=== PATIENT | male | born 1960 | race Asian ===

== ENCOUNTER 2021-06-29 04:45 | Emergency (ER) | payer OTHER ==
--- NOTE | 2021-06-29 04:46 | ED Physician Documentation ---
History of Present Illness - Stated complaint Stated Complaint: LT TOES SWOLLEN - History obtained from History obtained from: Patient - History of Present Illness Timing: How many days ago (5) Pain level max: 8 Pain level now: 4 Improved by: rest Worsened by: movement, palpation, weight-bearing - Additonal information Additional information: c/o 4-5 days of left foot pain at based of 2nd and 3rd toes. He tripped (without falling) in his garage approximately one week ago but does not recall having immediate pain and thus he is unsure if this pain is related to the incident. He recalls having similar symptoms many years ago unsure which foot, and per patients description, it sounds like gout was suspected. Patient took ibuprofen prior to arrival and feels improvement after the ibuprofen as well as after having elevated the foot overnight Review of Systems Constitutional: denies: Fever Skin: denies: Rash Musculoskeletal: reports: Extremity pain, Extremity swelling, Pain with weight bearing PD PAST MEDICAL HISTORY - Past Medical History Past Medical History: No - Present Medications Home Medications: Ambulatory Orders Medication Instructions Recorded Confirmed Atorvastatin [Lipitor] 20 mg PO DAILY 06/29/21 06/29/21 lisinopriL [Lisinopril] 20 mg PO DAILY 06/29/21 06/29/21 predniSONE [Deltasone] 40 mg PO DAILY 4 Days #8 tablet 06/29/21 - Allergies Allergies/Adverse Reactions: Allergies Allergy/AdvReac Type Severity Reaction Status Date / Time No Known Drug Allergies Allergy Verified 06/29/21 04:50 PD ED PE NORMAL - Vitals Vital signs reviewed: Yes - General General: Alert and oriented X 3, No acute distress, Well developed/nourished PD ED PE EXPANDED - Extremities Feet visual: 1 - swelling (subtle swelling and erythema with mild/moderate TTP without crepitus nor fluctuance), tenderness Results - Vitals Vitals: Oxygen O2 Source Room air - Rads (name of study) left foot xrays Radiology: Prelim report reviewed, See rad report PD MEDICAL DECISION MAKING - ED course Complexity details: reviewed results, re-evaluated patient, considered differential, d/w patient ED course: c/o atraumatic left foot pain and swelling, although he recalls a possibly injury last week and thus xrays are performed of the left foot. There are no acute findings on xrays and infection (such as cellulitis) is unlikely given poor margination of erythema, not hot to touch. Will initiate short course of prednisone for likely gout. Departure - Departure Disposition: 01 Home, Self Care Clinical Impression: Gout Qualifiers: Gout site: foot Gout etiology: unspecified cause Chronicity: acute Laterality: left Qualified Code(s): M10.9 - Gout, unspecified Condition: Good Instructions: ED Arthritis Gout, ED Diet Gout Prescriptions: predniSONE [Deltasone] 40 mg PO DAILY 4 Days #8 tablet Forms: Activity restrictions Discharge Date/Time: 06/29/21 05:56
[2021-06-29] MEDS ORDERED: predniSONE 20 MG TABLET PO STA (05:05)
[2021-06-29 05:58] VITALS: BP 156/81
--- NOTE | 2021-06-29 08:03 | XRAY Report ---
PROCEDURE: Foot 3 View LT INDICATIONS: left foot pain, tenderness TECHNIQUE: 3 views of the foot were acquired. COMPARISON: None FINDINGS: Bones: No fractures or dislocations. No suspicious bony lesions. Soft tissues: No tibiotalar joint effusion. Achilles tendon appears normal. IMPRESSION: No evidence acute bony abnormality of the left foot. A preliminary report with the above findings was provided at the time of the study by [facility]. Reviewed by: Kilo Dan MD on 06/29/2021 8:02 AM PDT Approved by: Kilo Dan MD on 06/29/2021 8:02 AM PDT Station ID: [id number]
== END 2021-06-29 05:56 | disposition home or self-care (01) ==
LOC: ED 04:45
DX: M10.9 Gout, unspecified (principal)
CPT/HCPCS: 73630; 99283; J7512

== ENCOUNTER 2022-03-15 04:04 | Emergency (ER) | payer OTHER ==
[2022-03-15 04:34] VITALS: BP 149/89
--- NOTE | 2022-03-15 04:55 | ED Physician Documentation ---
History of Present Illness - Stated complaint Stated Complaint: HIGH BP - Chief complaint Chief Complaint: Cardiac - History obtained from History obtained from: Patient - Additonal information Additional information: Patient is a 62-year-old male with a history of hypertension and gout presenting for evaluation of elevated blood pressure readings. Patient has a disability appointment on Tuesday with the [facility] office. He was instructed to keep a log of his blood pressure readings. He started checking his blood pressure yesterday. Yesterday evening his blood pressure was in the 120s range. Patient was up early this morning as he drives to [place] for work. He checked his blood pressure at home and it was in the 160s. He tried checking it 2 more times and the numbers kept going up. He then took his lisinopril 20 mg. He denied having any symptoms such as headache, blurred vision, weakness, chest pain or difficulty breathing. He normally takes his lisinopril later in the day Like late morning, midday. He does miss his lisinopril sometimes and reports taking it approximately 5 out of 7 days a week.He says that when he goes to the doctor's office and otherwise checks his blood pressure it is in the 120s. Review of Systems Constitutional: denies: Fever Eyes: denies: Photophobia Nose: denies: Congestion Cardiac: denies: Chest pain / pressure Respiratory: denies: Dyspnea, Cough GI: denies: Abdominal Pain, Vomiting Musculoskeletal: denies: Extremity swelling Neurologic: denies: Headache PD PAST MEDICAL HISTORY - Past Medical History Cardiovascular: Hypertension, High cholesterol Musculoskeletal: Gout - Past Surgical History Past Surgical History: No - Present Medications Home Medications: Ambulatory Orders Medication Instructions Recorded Confirmed Atorvastatin [Lipitor] 20 mg PO DAILY 06/29/21 03/15/22 lisinopriL [Lisinopril] 20 mg PO DAILY 06/29/21 03/15/22 predniSONE [Deltasone] 40 mg PO DAILY 4 Days #8 tablet 06/29/21 03/15/22 Colchicine 1 tab PO DAILY 03/15/22 03/15/22 - Allergies Allergies/Adverse Reactions: Allergies Allergy/AdvReac Type Severity Reaction Status Date / Time No Known Drug Allergies Allergy Verified 03/15/22 04:15 - Social History Does the pt smoke?: No Smoking Status: Never smoker Does the pt drink ETOH?: Yes Does the pt have substance abuse?: No - Immunizations Immunizations are current?: Yes PD ED PE NORMAL - General General: Alert and oriented X 3, No acute distress, Well developed/nourished - HEENT HEENT: Atraumatic, Moist mucous membranes, Pharynx benign - Neck Neck: Supple, no meningeal sign - Cardiac Cardiac: RRR, No murmur, Strong equal pulses - Respiratory Respiratory: No respiratory distress, Clear bilaterally - Abdomen Abdomen: Normal bowel sounds, Soft, Non tender - Derm Derm: Warm and dry - Extremities Extremities: No edema - Neuro Neuro: Alert and oriented X 3, grit blaster 2-12 intact, No motor deficit, No sensory deficit, Normal speech Eye Opening: Spontaneous Motor: Obeys Commands Verbal: Oriented GCS Score: 15 - Psych Psych: Normal mood Results - Vitals Vitals: Vital Signs - 24 hr 03/15/22 03/15/22 03/15/22 04:11 04:30 04:34 Temperature 36.9 C Heart Rate 98 78 76 Respiratory 16 20 Rate Blood Pressure 190/108 H 154/94 H 149/89 H O2 Saturation 100 100 100 Oxygen O2 Source Room air PD MEDICAL DECISION MAKING - ED course Complexity details: re-evaluated patient ED course: Patient presenting for evaluation of elevated blood pressure readings. Patient's initial blood pressure was elevated but patient did not have any symptoms to suggest urgency or emergency.After short time, blood pressures were rechecked and significantly improved. Patient was counseled on the need to be compliant with his blood pressure medication and Taking the medication at the same time every day. Patient was also advised on strict return precautions.Patient has remained asymptomatic. In accordance with the [facility] clinical policy from December 2012, this patient has asymptomatic elevated blood pressure without evidence of acute target organ injury. There are also no signs of acute stroke, cardiac ischemia, pulmonary edema, encephalopathy or acute congestive heart failure. Therefore the patient will be referred to their primary care provider for follow-up of their asymptomatic hypertension. Departure - Departure Disposition: 01 Home, Self Care Clinical Impression: Asymptomatic hypertension Condition: Stable Instructions: ED HTN Established Comments: Dandre - You were evaluated for high blood pressures. Your initial blood pressure reading was very elevated in the emergency department but you did not have any symptoms with it. Fortunately without any treatment your blood pressures did lower back down to a more Regular range. Please make sure to take your blood pressure medication every day and try to take it at the same time every day. If you are needing to keep a log of your blood pressures, please take These measurements every day and after you have taken your medication. But anytime you develop any symptoms such as headache, dizziness, weakness, chest pain, difficulty breathing or you have any concerns please return to the emergency department. Please follow-up with your primary care doctor With a log of your blood pressure readings in the next 1 to 2 weeks. Forms: Activity restrictions
== END 2022-03-15 05:08 | disposition home or self-care (01) ==
LOC: ED 04:04
DX: I10 Essential (primary) hypertension (principal)
CPT/HCPCS: 99282; 99283

== ENCOUNTER 2023-01-06 14:27 | Emergency (ER) | payer OTHER ==
--- NOTE | 2023-01-06 14:56 | ED Physician Documentation ---
History of Present Illness - Stated complaint Stated Complaint: C+BODY ACHES/HEAD PX - Chief complaint Chief Complaint: Heent - Additonal information Additional information: This is a very well-appearing 63-year-old male that presents the emergency department for sinus congestion, cough, body aches and fevers that began 1 week ago. He tested positive for COVID-19 5 days ago. He states that he is vaccinated though not boosted. He is lost his appetite as no food tastes good and is tasteless. He has taken Tylenol and Aleve without relief of symptoms. He denies chest pain or shortness of air. No nausea or vomiting. No diarrhea. Past medical history Mo significant for hypertension and hyperlipidemia. No previous history of coronary artery disease or strokes. Sparing mild tachycardia on exam he appears rather well. Review of Systems Constitutional: reports: Fever, Chills, Myalgias, Fatigue Eyes: reports: Reviewed and negative Ears: reports: Reviewed and negative Nose: reports: Congestion Throat: reports: Sore throat, Reviewed and negative Cardiac: reports: Reviewed and negative Respiratory: reports: Cough. denies: Dyspnea, Hemoptysis, Wheezing GI: reports: Reviewed and negative : reports: Reviewed and negative Skin: reports: Reviewed and negative Musculoskeletal: reports: Reviewed and negative PD PAST MEDICAL HISTORY - Past Medical History Cardiovascular: Hypertension, High cholesterol Musculoskeletal: Gout - Past Surgical History Past Surgical History: No - Present Medications Home Medications: Ambulatory Orders Medication Instructions Recorded Confirmed lisinopriL [Lisinopril] 20 mg PO DAILY 06/29/21 03/15/22 Colchicine 1 tab PO DAILY PRN 03/15/22 03/15/22 Rosuvastatin Calcium [Crestor] 20 mg PO DAILY 01/06/23 01/06/23 - Allergies Allergies/Adverse Reactions: Allergies Allergy/AdvReac Type Severity Reaction Status Date / Time No Known Drug Allergies Allergy Verified 01/06/23 14:34 - Social History Does the pt smoke?: No Smoking Status: Never smoker Does the pt drink ETOH?: Yes Does the pt have substance abuse?: No - Immunizations Immunizations are current?: Yes PD ED PE NORMAL - General General: Alert and oriented X 3, No acute distress - HEENT HEENT: Atraumatic, Moist mucous membranes, Pharynx benign - Neck Neck: Supple, no meningeal sign, No adenopathy - Cardiac Cardiac: RRR, No murmur, Strong equal pulses - Respiratory Respiratory: No respiratory distress, Clear bilaterally - Abdomen Abdomen: Normal bowel sounds - Back Back: No CVA TTP, No spinal TTP - Derm Derm: Normal color, Warm and dry, No rash - Extremities Extremities: No deformity, No tenderness to palpate, Normal ROM s pain - Neuro Neuro: Alert and oriented X 3 Eye Opening: Spontaneous Motor: Obeys Commands Verbal: Oriented GCS Score: 15 Results - Vitals Vitals: Vital Signs - 24 hr 01/06/23 01/06/23 14:30 14:54 Temperature 37.7 C Heart Rate 118 H 102 H Respiratory 16 Rate Blood Pressure 130/84 H O2 Saturation 96 96 Oxygen O2 Source Room air - Rads (name of study) cxr Relevant Findings:: EMP independent interpretation of test (No acute cardiopulmonary process) PD Medical Decision Making - ED course Complexity details: reviewed results, re-evaluated patient, considered differential, d/w patient ED course: This is a very well-appearing 63-year-old male who has past medical history Mo significant for hypertension hyperlipidemia who presents to the emergency department for evaluation of 6 days loss of taste, cough, congestion body aches and low-grade temperature elevations. He did test positive for COVID 5 days ago. On exam he has some very mild tachycardia but he is normotensive. Afebrile here. Cardiopulmonary auscultation was unremarkable without findings of hypo sera. My interpretation of the chest x-ray and that of the radiologist as well as that there is no acute cardiopulmonary findings to suggest pneumonia, pneumothorax, pleural effusion, pulmonary edema or cardiomegaly. Patient's biggest complaint is he has lost his appetite due to the loss of taste. He is also endorsing body aches. Given the duration of symptoms he is outside the window of treatment for consideration of oral antiviral therapy with Molnupiravir or Paxlovid. He is also outside the window of therapy for Tamiflu in the setting of influenza thus we deferred testing for that today as well. I discussed with patient that most flulike symptoms will begin to dissipate within 5 to 7 days. He is advised to take 600 mg of Motrin with food 2-3 times daily get plenty of fluids and lots of rest. Should he develop chest pain, severe shortness of air, any fainting episodes then he will return immediately to the ER for a second evaluation. Departure - Departure Disposition: Home, Self Care Clinical Impression: COVID-19, Generalized body aches Condition: Stable Record reviewed to determine appropriate education?: Yes Instructions: ED Viral Syndrome Comments: About a week ago you began having headaches, fever, body aches congestion and cough. You tested positive for COVID-19 5 days ago. You have lost your appetite is nothing tastes good. The exam of your heart and lungs today was essentially normal. You do have a little bit of an elevated heart rate which is most likely due to the pain. The chest x-ray completed shows no findings of pneumonia, pneumothorax, pleural e ffusion, cardiomegaly or congestive heart failure. Unfortunately with the duration of your symptoms you are outside the window for consideration of treatment with oral antiviral medication such as Paxlovid or Molnupiravir. I expect that with a little bit of time and rest your symptoms will be getting better. I do recommend that you take 600 mg of ibuprofen [id number] with food 2-3 times a day. You can continue to alternate with Tylenol 500 mg for body aches and fever. You can continue to take your usual blood pressure and high cholesterol medicines. For the nasal congestion sinus rinse with saline can be helpful or Flonase nasal spray taken after a shower. In general I expect your symptoms to be getting better over the next few days. If you develop worsening fevers, have any fainting episodes, have severe chest pain or shortness of air you should return to the ER for second evaluation
--- NOTE | 2023-01-06 15:33 | XRAY Report ---
PROCEDURE: Chest 1 View X-Ray INDICATIONS: chest pain TECHNIQUE: One view of the chest was acquired. COMPARISON: None. FINDINGS: Surgical changes and devices: None. Lungs and pleura: No pleural effusions or pneumothorax. Lungs are clear. Mediastinum: Mediastinal contours appear normal. Heart size is normal. Bones and chest wall: No suspicious bony lesions. Overlying soft tissues appear unremarkable. IMPRESSION: No acute pulmonary process. Reviewed by: Rosario Carney MD on 01/06/2023 3:32 PM [facility] Approved by: Rosario Carney MD on 01/06/2023 3:32 PM [facility] Station ID: [id number]
[2023-01-06] MEDS ORDERED: IBUPROFEN 600 MG TABLET PO STA (15:45)
[2023-01-06 15:54] VITALS: BP 133/97
== END 2023-01-06 16:02 | disposition home or self-care (01) ==
LOC: ED 14:27
DX: U07.1 COVID-19 (principal); I10 Essential (primary) hypertension; E78.00 Pure hypercholesterolemia, unspecified; E78.5 Hyperlipidemia, unspecified; Z79.899 Other long term (current) drug therapy
CPT/HCPCS: 71045; 99283; A9270

== ENCOUNTER 2023-01-10 07:51 | Emergency (ER) | payer OTHER ==
[2023-01-10] MEDS ORDERED: ALBUTEROL 1 PUFF INH STA (08:11)
[2023-01-10] MEDS ORDERED: CHERRY SYRUP 10 ML UDC PO ONE (08:12)
[2023-01-10] MEDS ORDERED: DEXAMETHASONE 10 MG/ML VIAL PO STA (08:12)
[2023-01-10] MEDS ORDERED: BENZONATATE 100 MG CAPSULE PO STA (08:12)
--- NOTE | 2023-01-10 08:15 | ED Physician Documentation ---
PD HPI DYSPNEA - Stated complaint Stated Complaint: COUGH - Chief complaint Chief Complaint: Resp - History obtained from History obtained from: Patient - History of Present Illness Timing - onset: How many days ago (10 days of illness with initially congestion, fever, malaise and some cough. Fevers and aches have improved but cough worse the past 3 days. Unable to sleep due to cough. Chest hurts with coughing. Minimally productive cough. No hemoptysis. No exertional CP/dyspnea preceding the current illness.) Timing - onset during: Rest, Light activity Timing - details: Gradual onset, Still present Inciting event(s): URI Improved by: Rest, Sitting up Worsened by: Exertion, Laying flat, Coughing Associated symptoms: Cough Recently seen: Emergency Dept (4 days ago for general illness and fevers/aches, mild cough. No Rx given. Had CXR that was clear.) Review of Systems Constitutional: reports: Fever (last week) Nose: reports: Congestion Throat: denies: Sore throat Cardiac: reports: Chest pain / pressure (with coughing and deep breathing). denies: Pedal edema, Calf pain Respiratory: reports: Dyspnea, Cough, Wheezing GI: reports: Diarrhea (loose). denies: Vomiting PD PAST MEDICAL HISTORY - Past Medical History Cardiovascular: Hypertension, High cholesterol Respiratory: None Musculoskeletal: Gout - Past Surgical History Past Surgical History: No - Present Medications Home Medications: Ambulatory Orders Medication Instructions Recorded Confirmed lisinopriL [Lisinopril] 20 mg PO DAILY 06/29/21 03/15/22 Colchicine 1 tab PO DAILY PRN 03/15/22 03/15/22 Rosuvastatin Calcium [Crestor] 20 mg PO DAILY 01/06/23 01/06/23 Albuterol Sulf [Ventolin Hfa 1 - 2 puffs INH Q4HR PRN #1 each 01/10/23 Inhaler] Amox/Clav 875/125 [Augmentin] 1 each PO Q12H #14 tablet 01/10/23 Benzonatate [Tessalon] 100 mg PO TID PRN #20 cap 01/10/23 guaiFENesin/CODEINE [Robitussin AC] 5 ml PO Q6H PRN #120 ml 01/10/23 - Allergies Allergies/Adverse Reactions: Allergies Allergy/AdvReac Type Severity Reaction Status Date / Time No Known Drug Allergies Allergy Verified 01/10/23 08:04 - Social History Does the pt smoke?: No Smoking Status: Never smoker Does the pt drink ETOH?: Yes Does the pt have substance abuse?: No - Immunizations Immunizations are current?: Yes PD ED PE NORMAL - Vitals Vital signs reviewed: Yes (sats 93-95%) - General General: Alert and oriented X 3, No acute distress, Well developed/nourished - Neck Neck: Supple, no meningeal sign, No adenopathy - Cardiac Cardiac: RRR, No murmur - Respiratory Respiratory: No respiratory distress. No: Clear bilaterally (no coarse sounds. Has some exp whezing and tightness centrally. ) - Derm Derm: Normal color, Warm and dry - Extremities Extremities: No edema, No calf tenderness / cord - Neuro Neuro: Alert and oriented X 3, No motor deficit, Normal speech Results - Vitals Vitals: Vital Signs - 24 hr 01/10/23 01/10/23 01/10/23 07:58 08:07 08:31 Temperature 37.6 C Heart Rate 89 88 88 Respiratory 18 24 26 H Rate Blood Pressure 142/79 H O2 Saturation 95 94 01/10/23 09:00 Temperature Heart Rate 102 H Respiratory 16 Rate Blood Pressure 137/85 H O2 Saturation 96 Oxygen O2 Source Room air - Rads (name of study) chest xray Relevant Findings:: Prelim report reviewed, EMP independent interpretation of test (scattered infiltrates, changed from 01/06/23), See rad report PD Medical Decision Making - ED course Complexity details: reviewed old records (last visit to ER 4 days ago. ), d/w patient Reviewed Lab Results: chest xray with some patchy infiltrates now compared to recent one. Will treat for developing pneumonia. Sats are good and he has unlabored breathing. Departure - Departure Disposition: 01 Home, Self Care Clinical Impression: Cough, Pneumonia, COVID-19 Condition: Stable Record reviewed to determine appropriate education?: Yes Instructions: ED Pneumonia Adult Follow-Up: YAMILET WEIR MD [Primary Care Provider] - Prescriptions: Albuterol Sulf [Ventolin Hfa Inhaler] 1 - 2 puffs INH Q4HR PRN #1 each PRN Reason: Shortness Of Air/Wheezing Amox/Clav 875/125 [Augmentin] 1 each PO Q12H #14 tablet guaiFENesin/CODEINE [Robitussin AC] 5 ml PO Q6H PRN #120 ml PRN Reason: Cough Benzonatate [Tessalon] 100 mg PO TID PRN #20 cap PRN Reason: Cough Comments: Your chest x-ray does show scattered fluid collections/infiltrates consistent with developing pneumonia. This may still be viral but there would be concern for bacterial developing on top of the prior COVID viral infection. We will treat it with Augmentin antibiotic twice daily for a week in case of bacterial cause. Also albuterol inhaler 2 to 3 puffs 4 times daily to help open the airways and reduce coughing and bringing up more phlegm. Benzonatate/Tessalon to help with cough suppression. You could also add codeine cough medicine for that as well. Stay well-hydrated. Continue with Tylenol ibuprofen as needed for fevers or aches. Recheck if not improving well over the next several days return if worsening. I sent your prescriptions to [facility] in [place]. Discharge Date/Time: 01/10/23 09:14
--- NOTE | 2023-01-10 08:31 | XRAY Report ---
PROCEDURE: Chest 1 View X-Ray INDICATIONS: cough/ chest pain TECHNIQUE: One view of the chest was acquired. COMPARISON: None. FINDINGS: Surgical changes and devices: None. Lungs and pleura: Patchy, mid to lower lung zone foci of consolidation. Mediastinum: Mediastinal contours appear normal. Heart size is normal. Bones and chest wall: No suspicious bony lesions. Overlying soft tissues appear unremarkable. IMPRESSION: Multifocal consolidation, concerning for pneumonia. Aspiration is also a consideration. Reviewed by: Nitish Sapp on 01/10/2023 8:30 AM PDT Approved by: Nitish Sapp on 01/10/2023 8:30 AM PDT Station ID: [id number]
[2023-01-10] MEDS ORDERED: AMOX/CLAV 875 MG/125 MG TABLET PO STA (09:03)
[2023-01-10 09:08] VITALS: BP 137/85
== END 2023-01-10 09:14 | disposition home or self-care (01) ==
LOC: ED 07:51
DX: U07.1 COVID-19 (principal); J12.82 Pneumonia due to coronavirus disease 2019; I10 Essential (primary) hypertension
CPT/HCPCS: 71045; 94640; 99284; A9270

== ENCOUNTER 2023-05-24 16:45 | Emergency (ER) | payer OTHER ==
[2023-05-24 16:58] VITALS: BP 135/104
--- NOTE | 2023-05-24 17:06 | ED Physician Documentation ---
PD HPI OPHTHO - Stated complaint Stated Complaint: L EYE PX - Chief complaint Chief Complaint: Heent - History obtained from History obtained from: Patient - Additional information Additional information: 63-year-old male presents by private vehicle from home for accidental left eye injury that occurred approximately 1 hour prior to arrival. Patient states that he was working with a branch outside when he thinks that a branch struck his left eye. He reports minimal pain, but when he looked in the mirror he noticed a big red area in his eye and was concerned that he may lose his vision and pres ented for evaluation. Patient does not wear glasses or contacts, he denies history of diabetes, tetanus shot was updated less than 1 month ago [facility]. Denies blurred vision, photophobia, changes in vision. Review of Systems Constitutional: denies: Fever, Chills Eyes: reports: Other (Red Left eye). denies: Loss of vision, Decreased vision, Photophobia, Discharge, Irritation Ears: denies: Loss of hearing, Ear pain, Drainage/discharge Nose: denies: Rhinorrhea / runny nose, Foreign Body PD PAST MEDICAL HISTORY - Past Medical History Cardiovascular: Hypertension, High cholesterol Respiratory: None Musculoskeletal: Gout - Past Surgical History Past Surgical History: No - Present Medications Home Medications: Ambulatory Orders Medication Instructions Recorded Confirmed lisinopriL [Lisinopril] 20 mg PO DAILY 06/29/21 03/15/22 Colchicine 1 tab PO DAILY PRN 03/15/22 03/15/22 Rosuvastatin Calcium [Crestor] 20 mg PO DAILY 01/06/23 01/06/23 Albuterol Sulf [Ventolin Hfa 1 - 2 puffs INH Q4HR PRN #1 each 01/10/23 Inhaler] Amox/Clav 875/125 [Augmentin] 1 each PO Q12H #14 tablet 01/10/23 Benzonatate [Tessalon] 100 mg PO TID PRN #20 cap 01/10/23 guaiFENesin/CODEINE [Robitussin AC] 5 ml PO Q6H PRN #120 ml 01/10/23 Sulfacetamide Sodium/Sulfur [Sod 10 drops TP QID #5 ml 05/24/23 Sulfacetamide-Sulfur Susp] Sulfacetamide Sodium/Sulfur [Sod 10 drops TP QID #5 ml 05/24/23 Sulfacetamide-Sulfur Susp] - Allergies Allergies/Adverse Reactions: Allergies Allergy/AdvReac Type Severity Reaction Status Date / Time No Known Drug Allergies Allergy Verified 05/24/23 16:51 - Social History Does the pt smoke?: No Smoking Status: Never smoker Does the pt drink ETOH?: Yes Does the pt have substance abuse?: No - Immunizations Immunizations are current?: Yes PD ED PE NORMAL - Vitals Vital signs reviewed: Yes - General General: Alert and oriented X 3, No acute distress, Well developed/nourished - HEENT HEENT: PERRL, EOMI, Other (Subconjunctival hemorrhage L medial eye. Punctate fluorescein uptake 1 o'clock position L eye. No foreign body. Negative yemi sign) - Cardiac Cardiac: RRR, No murmur - Respiratory Respiratory: No respiratory distress, Clear bilaterally - Abdomen Abdomen: Soft, Non tender, Non distended Results - Vitals Vitals: Vital Signs - 24 hr 05/24/23 16:49 Temperature 36.3 C L Heart Rate 110 H Respiratory 18 Rate Blood Pressure 135/104 H O2 Saturation 100 Oxygen O2 Source Room air PD Medical Decision Making - ED course Complexity details: re-evaluated patient, considered differential, d/w patient ED course: Subconjunctival hemorrhage with punctate corneal abrasion following accidental eye injury. Vision is unchanged, patient's tetanus shot is up-to-date. Patient denies any known risk factors for Pseudomonas infection. Patient reassured, will discharge on antibiotic drops. Ophthalmology follow-up recommended to ensure resolution of hemorrhage Departure - Departure Disposition: 01 Home, Self Care Clinical Impression: Subconjunctival hemorrhage, Corneal abrasion Condition: Stable Instructions: ED Eye Injury Corneal Abrasion Follow-Up: Yvan Jarquin MD [Provider Admit Priv/Credential] - Prescriptions: Sulfacetamide Sodium/Sulfur [Sod Sulfacetamide-Sulfur Susp] 10 drops TP QID #5 ml Sulfacetamide Sodium/Sulfur [Sod Sulfacetamide-Sulfur Susp] 10 drops TP QID #5 ml Forms: PCP List Discharge Date/Time: 05/24/23 17:14
== END 2023-05-24 17:14 | disposition home or self-care (01) ==
LOC: ED 16:45
DX: H11.32 Conjunctival hemorrhage, left eye (principal); S05.02XA Injury of conjunctiva and corneal abrasion without foreign body, left eye, initial encounter; W22.8XXA Striking against or struck by other objects, initial encounter; I10 Essential (primary) hypertension; E78.00 Pure hypercholesterolemia, unspecified; Z79.899 Other long term (current) drug therapy
CPT/HCPCS: 99281; 99283

== ENCOUNTER 2023-06-27 12:17 | Emergency (ER) | payer OTHER ==
[2023-06-27] MEDS ORDERED: HYDROcod/ACETAM 5/325 MG TABLET PO STA (13:14)
[2023-06-27] MEDS ORDERED: KETOROLAC 30 MG/ML VIAL IM STA (13:14)
--- NOTE | 2023-06-27 13:33 | XRAY Report ---
PROCEDURE: Wrist 3 View LT INDICATIONS: L WRIST PAIN/SWELLING TECHNIQUE: 3 views of the wrist were acquired. COMPARISON: None. FINDINGS: Bones: No fractures or dislocations. No suspicious bony lesions. Severe degenerative arthritis at t he first carpometacarpal joint. Benign-appearing ossific or calcific density lateral to the first met acarpal. Soft tissues: No suspicious soft tissue calcifications or masses. IMPRESSION: Degenerative arthritis. No acute bony abnormality. If there is anatomic snuff box tenderness, conside r wrist immobilization and repeat radiographs in 10-14 days or cross-sectional imaging now. If pain p ersists with conservative management, consider repeat radiographs in 10-14 days or cross-sectional im aging. Reviewed by: Kilo Dan MD on 06/27/2023 1:32 PM PDT Approved by: Kilo Dan MD on 06/27/2023 1:32 PM PDT Station ID: [id number]
--- NOTE | 2023-06-27 13:45 | ED Physician Documentation ---
PD HPI UPPER EXT INJURY - Stated complaint Stated Complaint: LT WRIST INJ - Chief complaint Chief Complaint: Ext Problem - History obtained from History obtained from: Patient - Additonal information Additional information: 63-year-old male presents for 2 days of left wrist pain and swelling. He has a history of gout but it is usually only in his great toe. Denies trauma, thinks he may have possibly slept on it incorrectly, however he is not sure. He did take a dose of colchicine earlier today that had minimal improvement in his pain. Denies numbness, weakness. Reports pain with any movement of his wrist. Review of Systems Constitutional: denies: Fever, Chills Cardiac: denies: Chest pain / pressure, Palpitations, Calf pain Respiratory: denies: Dyspnea, Cough, Wheezing GI: denies: Abdominal Pain, Nausea, Vomiting : denies: Dysuria, Frequency, Hesitancy Musculoskeletal: reports: Joint pain. denies: Neck pain, Back pain, Extremity pain, Extremity swelling, Joint swelling PD PAST MEDICAL HISTORY - Past Medical History Past Medical History: Yes Cardiovascular: Hypertension, High cholesterol Respiratory: None Musculoskeletal: Gout - Past Surgical History Past Surgical History: No - Present Medications Home Medications: Ambulatory Orders Medication Instructions Recorded Confirmed lisinopriL [Lisinopril] 20 mg PO DAILY 06/29/21 03/15/22 Colchicine 1 tab PO DAILY PRN 03/15/22 03/15/22 Rosuvastatin Calcium [Crestor] 20 mg PO DAILY 01/06/23 01/06/23 Albuterol Sulf [Ventolin Hfa 1 - 2 puffs INH Q4HR PRN #1 each 01/10/23 Inhaler] Amox/Clav 875/125 [Augmentin] 1 each PO Q12H #14 tablet 01/10/23 Benzonatate [Tessalon] 100 mg PO TID PRN #20 cap 01/10/23 guaiFENesin/CODEINE [Robitussin AC] 5 ml PO Q6H PRN #120 ml 01/10/23 Sulfacetamide Sodium/Sulfur [Sod 10 drops TP QID #5 ml 05/24/23 Sulfacetamide-Sulfur Susp] Sulfacetamide Sodium/Sulfur [Sod 10 drops TP QID #5 ml 05/24/23 Sulfacetamide-Sulfur Susp] - Allergies Allergies/Adverse Reactions: Allergies Allergy/AdvReac Type Severity Reaction Status Date / Time No Known Drug Allergies Allergy Verified 06/27/23 12:33 - Social History Does the pt smoke?: No Smoking Status: Never smoker Does the pt drink ETOH?: Yes Does the pt have substance abuse?: No - Immunizations Immunizations are current?: Yes PD ED PE NORMAL - Vitals Vital signs reviewed: Yes - General General: Alert and oriented X 3, No acute distress, Well developed/nourished - HEENT HEENT: Atraumatic, PERRL - Neck Neck: Supple, no meningeal sign - Cardiac Cardiac: RRR, No murmur - Respiratory Respiratory: No respiratory distress, Clear bilaterally - Abdomen Abdomen: Soft, Non tender, Non distended - Back Back: No CVA TTP, No spinal TTP - Derm Derm: Normal color, Warm and dry, No rash - Extremities Extremities: No deformity, No edema, Other (L wrist pain) - Neuro Neuro: Alert and oriented X 3, windchill administrator 2-12 intact, No motor deficit, Normal speech - Psych Psych: Normal mood, Normal affect Results - Vitals Vitals: Oxygen O2 Source Room air PD Medical Decision Making - ED course Complexity details: reviewed old records, reviewed results, re-evaluated patient, considered differential, d/w patient ED course: Atraumatic wrist pain and swelling. Positive Tanna test could indicate tendinitis, however he does have a history of gout and this could be an unusual flareup of gout in his wrist. X-rays negative for acute findings. Patient is neurovascularly intact. Patient counseled to continue to use NSAIDs and Tylenol for pain. He was placed in soft wrist splint for comfort. He was counseled to follow a gout diet and to follow-up with his primary care physician for further management. RICE instructions advised Departure - Departure Disposition: 01 Home, Self Care Clinical Impression: Wrist pain Qualifiers: Laterality: left Qualified Code(s): M25.532 - Pain in left wrist Condition: Stable Instructions: De Quervain Tenosynovitis, Gout Forms: PCP List Discharge Date/Time: 06/27/23 13:56
[2023-06-27 14:03] VITALS: BP 144/88; O2SAT 98
== END 2023-06-27 13:56 | disposition home or self-care (01) ==
LOC: ED 12:17
DX: M25.532 Pain in left wrist (principal)
CPT/HCPCS: 73110; 96372; 99283; A9270